=== PATIENT | female | born 1960 | race Caucasian/White ===

== ENCOUNTER 2019-09-01 22:52 | Emergency (ER) | payer OTHER ==
[2019-09-01] MEDS ORDERED: KETOROLAC 30 MG/ML INJ ONE (23:35)
[2019-09-01] MEDS ORDERED: dexAMETHasone 10 MG/ML VIAL ONE (23:35)
--- NOTE | 2019-09-02 00:07 | EDPHYS ---
Physician Documentation [facility] Name: Benita Mackey Age: 59 yrs Sex: Female : 1960 Arrival Date: 09/01/2019 Time: 22:54 Bed 17 Private MD: ED Physician Sergei Vasques HPI: 08/31 23:12 This 59 yrs old Female presents to ER via Ambulatory with complaints of jmm Numbness Of Arm. 23:12 The patient or guardian complains of pain. Onset: The symptoms/episode began/occurred jmm gradually, 3 day(s) ago. Modifying factors: The symptoms are alleviated by nothing. the symptoms are aggravated by movement. Associated signs and symptoms: Pertinent positives: pain, tingling. This is a 59 year old female with a history of hlp, htn, that presents to the ED with complaints of right forearm pain which radiates to her hand for the past 3 days. Patient denies fever. 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 Pain begins at the elbow and radiates to the right hand, mainly affecting her 4th and 5th finger. Historical: - Allergies: 23:07 Chocolate; mg2 23:07 Codeine; mg2 23:07 Morphine; mg2 23:07 PENICILLINS; mg2 23:07 Sulfa (Sulfonamide Antibiotics); mg2 - Home Meds: 23:07 atorvastatin 10 mg Oral tab 1 tab once daily [Active]; lisinopril-hydrochlorothiazide mg2 10-12.5 mg Oral tab 1 tab once daily for Hypertension [Active]; omeprazole 40 mg Oral cpDR 1 cap once daily [Active]; venlafaxine 150 mg Oral cp24 1 cap once daily for Anxiety with Depression [Active]; - PMHx: 23:07 Anxiety; GERD; High Cholesterol; Hypertension; mg2 - PSHx: 23:07 Cholecystectomy; mg2 - Immunization history:: Flu vaccine status is unknown. - Social history:: Smoking status: Patient/guardian denies using tobacco, Patient/guardian denies using alcohol, street drugs, IV drugs. ROS: 23:12 Constitutional: Negative for fever, chills, and weight loss, Cardiovascular: Negative jmm for chest pain, palpitations, and edema, Respiratory: Negative for shortness of breath, cough, wheezing, and pleuritic chest pain. 23:12 MS/extremity: Positive for pain. 23:12 All other systems are negative. Exam: 23:12 Constitutional: This is a well developed, well nourished patient who is awake, alert, jmm and in no acute distress. Head/Face: atraumatic. Eyes: EOMI, no conjunctival erythema appreciated ENT: Moist Mucus Membranes Neck: Trachea midline, Supple Chest/axilla: Normal chest wall appearance and motion. Cardiovascular: Regular rate and rhythm. No edema appreciated Respiratory: Normal respirations, no respiratory distress appreciated Abdomen/GI: Non distended, soft Back: Normal ROM Skin: General appearance color normal 23:12 MS/ Extremity: Moves all extremities, no obvious deformities appreciated, no edema noted to the lower extremities Neuro: Awake and alert, normal gait 23:12 Musculoskeletal/extremity: positive tinnels sign at both cubital tunnel and carpel tunnel. Full hand carver strength, full rom of motion appreicated, full radial pulse, compartments are soft, NVI. Vital Signs: 23:03 BP 132 / 61; Pulse 78; Resp 18; Temp 97.6; Pulse Ox 100% on R/A; Weight 83.91 kg; mg2 Height 5 ft. 2 in. (157.48 cm); 09/01 00:22 BP 130 / 65; Pulse 80; Resp 18; Temp 98; Pulse Ox 100% on R/A; mg2 08/31 23:03 Body Mass Index 33.84 (83.91 kg, 157.48 cm) mg2 MDM: 08/31 23:12 Patient medically screened. [facility] 23:59 Data reviewed: vital signs, nurses notes. Counseling: I had a detailed discussion with [facility] the patient and/or guardian regarding: the historical points, exam findings, and any diagnostic results supporting the discharge/admit diagnosis, the need for outpatient follow up, to return to the emergency department if symptoms worsen or persist or if there are any questions or concerns that arise at home. ED course: PE findings consistent with ulnar neuropathy. Patient advised to follow up with ortho for further evaluation. . 08/31 23:21 Order name: Wrist Splint; Complete Time: 23:38 mg2 Administered Medications: 23:38 Drug: TORadol 30 mg Route: IM; Site: right gluteus; mg2 09/01 00:23 Follow up: Response: No adverse reaction mg2 08/31 23:38 Drug: Decadron 10 mg Route: IM; Site: left gluteus; mg2 09/01 00:23 Follow up: Response: No adverse reaction mg2 Disposition: 07:40 Co-signature as Attending Physician, Sergei Vasques MD I agree with the assessment and [facility] plan of care. Disposition: 09/02/19 00:06 Discharged to Home. Impression: Pain in right forearm. - Condition is Stable. - Discharge Instructions: Carpal Tunnel Syndrome, Neuropathic Pain. - Prescriptions for orphenadrine citrate 100 mg Oral Tablet Sustained Release - take 1 tablet by ORAL route 2 times per day As needed; 20 tablet. - Medication Reconciliation Form, Thank You Letter, Antibiotic Education, Prescription Opioid Use form. - Follow up: Antonio Palmer MD; When: 2 - 3 days; Reason: Recheck today's complaints, Continuance of care, Re-evaluation by your physician. Signatures: Sergei Vasques MD MD cha Mickail, Joel, PA PA [facility] Blaine Victor RN RN mg2 Corrections: (The following items were deleted from the chart) 00:23 00:06 09/02/2019 00:06 Discharged to Home. Impression: Pain in right forearm. Condition mg2 is Stable. Forms are Medication Reconciliation Form, Thank You Letter, Antibiotic Education, Prescription Opioid Use. Follow up: Dr. Antonio Palmer; When: 2 - 3 days; Reason: Recheck today's complaints, Continuance of care, Re-evaluation by your physician. luisa
--- NOTE | 2019-09-02 00:07 | ER ---
Nurse's Notes [facility] Name: Benita Mackey Age: 59 yrs Sex: Female : 1960 Arrival Date: 09/01/2019 Time: 22:54 Bed 17 Private MD: Diagnosis: Pain in right forearm Presentation: 08/31 23:03 Chief complaint: Patient states: i have right arm pain with numbness and tingling in my mg2 fingers for few days now. i think its pinch nerve. Coronavirus screen: The patient has NOT traveled to a country currently being monitored by the [facility] within the last 14 days. Proceed with normal triage procedures. The patient has NOT had contact with any known and/or suspected case of coronavirus. Proceed with normal triage procedures. Ebola Screen: No symptoms or risks identified at this time. Initial Sepsis Screen: Does the patient meet any 2 criteria? No. Patient's initial sepsis screen is negative. Does the patient have a suspected source of infection? No. Patient's initial sepsis screen is negative. Risk Assessment: Do you want to hurt yourself or someone else? Patient reports no desire to harm self or others. 23:03 Method Of Arrival: Ambulatory mg2 23:03 Acuity: MARIAN 3 mg2 23:09 Onset of symptoms was August 2019. mg2 Historical: - Allergies: 23:07 Chocolate; mg2 23:07 Codeine; mg2 23:07 Morphine; mg2 23:07 PENICILLINS; mg2 23:07 Sulfa (Sulfonamide Antibiotics); mg2 - Home Meds: 23:07 atorvastatin 10 mg Oral tab 1 tab once daily [Active]; lisinopril-hydrochlorothiazide mg2 10-12.5 mg Oral tab 1 tab once daily for Hypertension [Active]; omeprazole 40 mg Oral cpDR 1 cap once daily [Active]; venlafaxine 150 mg Oral cp24 1 cap once daily for Anxiety with Depression [Active]; - PMHx: 23:07 Anxiety; GERD; High Cholesterol; Hypertension; mg2 - PSHx: 23:07 Cholecystectomy; mg2 - Immunization history:: Flu vaccine status is unknown. - Social history:: Smoking status: Patient/guardian denies using tobacco, Patient/guardian denies using alcohol, street drugs, IV drugs. Screenin:07 Abuse screen: Denies threats or abuse. Denies injuries from another. Nutritional mg2 screening: No deficits noted. Tuberculosis screening: No symptoms or risk factors identified. Fall Risk None identified. Assessment: 23:07 General: Appears in no apparent distress. comfortable, Behavior is calm, cooperative. mg2 Pain: Complains of pain in right arm Pain radiates to right hand Quality of pain is described as aching, Pain began gradually, 2-3 days ago. Is intermittent. Neuro: Level of Consciousness is awake, alert, obeys commands, Oriented to person, place, time, situation. Cardiovascular: Capillary refill < 3 seconds Patient's skin is warm and dry. Respiratory: Airway is patent Respiratory effort is even, unlabored, Respiratory pattern is regular, symmetrical. GI: No signs and/or symptoms were reported involving the gastrointestinal system. : No signs and/or symptoms were reported regarding the genitourinary system. EENT: No signs and/or symptoms were reported regarding the EENT system. Derm: Skin is intact, is healthy with good turgor, Skin is pink, warm \T\ dry. normal. Musculoskeletal: Circulation, motion, and sensation intact. Capillary refill < 3 seconds, Reports numbness in right arm pain in right arm. Vital Signs: 23:03 BP 132 / 61; Pulse 78; Resp 18; Temp 97.6; Pulse Ox 100% on R/A; Weight 83.91 kg; mg2 Height 5 ft. 2 in. (157.48 cm); 09/01 00:22 BP 130 / 65; Pulse 80; Resp 18; Temp 98; Pulse Ox 100% on R/A; mg2 08/31 23:03 Body Mass Index 33.84 (83.91 kg, 157.48 cm) mg2 ED Course: 08/31 22:54 Patient arrived in ED. cl3 23:02 Blaine Victor, DIONNA is Primary Nurse. mg2 23:05 Triage completed. mg2 23:07 Arm band placed on. mg2 23:10 Patient has correct armband on for positive identification. mg2 23:12 Fidle Corona PA is PHCP. [facility] 23:12 Sergei Vasques MD is Attending Physician. [facility] 09/01 00:05 Antonio Palmer MD is Referral Physician. [facility] 00:22 No provider procedures requiring assistance completed. Patient did not have IV access mg2 during this emergency room visit. Velcro wrist splint applied to right wrist. Administered Medications: 08/31 23:38 Drug: TORadol 30 mg Route: IM; Site: right gluteus; mg2 09/01 00:23 Follow up: Response: No adverse reaction mg2 08/31 23:38 Drug: Decadron 10 mg Route: IM; Site: left gluteus; mg2 09/01 00:23 Follow up: Response: No adverse reaction mg2 Outcome: 00:06 Discharge ordered by MD. moran 00:23 Discharged to home ambulatory. mg2 00:23 Condition: stable 00:23 Discharge instructions given to patient, Instructed on discharge instructions, follow up and referral plans. medication usage, Demonstrated understanding of instructions, follow-up care, medications, Prescriptions given X 00:23 Patient left the ED. mg2 Signatures: Fidel Corona PA PA jmm Gardose, Michele, DIONNA RN mg2 Balaji Daily cl3 Corrections: (The following items were deleted from the chart) 08/31 23:10 23:09 Allergy band placed. mg2 mg2
[2019-09-02 00:33] VITALS: O2SAT 100
[2019-09-02 00:34] VITALS: BP 130/65; TEMP 98
== END 2019-09-02 00:23 | disposition home or self-care (01) ==
LOC: ER 22:52
DX: M79.631 Pain in right forearm (principal); Z88.6 Allergy status to analgesic agent; Z88.0 Allergy status to penicillin; Z88.2 Allergy status to sulfonamides; Z91.018 Allergy to other foods
CPT/HCPCS: 96372; 99283; J1100

== ENCOUNTER 2019-09-04 20:19 | Emergency (ER) | payer OTHER ==
[2019-09-04] MEDS ORDERED: KETOROLAC 30 MG/ML INJ ONE (20:44)
[2019-09-04] MEDS ORDERED: dexAMETHasone 10 MG/ML VIAL ONE (20:44)
--- NOTE | 2019-09-04 21:02 | ER ---
Nurse's Notes [facility] Name: Benita Mackey Age: 59 yrs Sex: Female : 1960 Arrival Date: 09/04/2019 Time: 20:22 Bed 19 Private MD: Damian Quinteros Diagnosis: Carpal tunnel syndrome, left upper limb Presentation: 09/03 20:35 Chief complaint: Patient states: my left arm and hand hurts a lot started today morning rr5 I took ibuprofen, aleve, and pain medication but it does not relieved the pain. 20:35 Coronavirus screen: Patient denies fever greater than 100.4F, cough, shortness of rr5 breath, or difficulty breathing. Proceed with normal triage process. Ebola Screen: Patient negative for fever greater than or equal to 101.5 degrees Fahrenheit, and additional compatible Ebola Virus Disease symptoms Patient denies exposure to infectious person. Patient denies travel to an Ebola-affected area in the 21 days before illness onset. Initial Sepsis Screen: Does the patient meet any 2 criteria? No. Patient's initial sepsis screen is negative. Does the patient have a suspected source of infection? No. Patient's initial sepsis screen is negative. Risk Assessment: Do you want to hurt yourself or someone else? Patient reports no desire to harm self or others. Onset of symptoms was September 04, 2019. 20:35 Method Of Arrival: Ambulatory rr5 20:35 Acuity: MARIAN 4 rr5 Historical: - Allergies: 20:41 Chocolate; rr5 20:41 Codeine; rr5 20:41 Morphine; rr5 20:41 PENICILLINS; rr5 20:41 Sulfa (Sulfonamide Antibiotics); rr5 - Home Meds: 20:41 atorvastatin 10 mg Oral tab 1 tab once daily [Active]; lisinopril-hydrochlorothiazide rr5 10-12.5 mg Oral tab 1 tab once daily for Hypertension [Active]; omeprazole 40 mg Oral cpDR 1 cap once daily [Active]; venlafaxine 150 mg Oral cp24 1 cap once daily for Anxiety with Depression [Active]; - PMHx: 20:41 Anxiety; GERD; High Cholesterol; Hypertension; rr5 - PSHx: 20:41 Cholecystectomy; ; Tonsillectomy; nose surgery related to cancer; rr5 - Immunization history:: Adult Immunizations up to date. - Social history:: Smoking status: unknown Patient/guardian denies using alcohol, street drugs, tobacco products. Screenin:02 Abuse screen: Denies threats or abuse. Denies injuries from another. Nutritional rr5 screening: No deficits noted. Tuberculosis screening: No symptoms or risk factors identified. Fall Risk None identified. Total Palmer Fall Scale indicates No Risk (0-24 pts). Assessment: 20:35 General: Appears in no apparent distress. comfortable, Behavior is calm, cooperative, rr5 appropriate for age. 20:35 Pain: Complains of pain in left wrist and left elbow Pain radiates to left arm Pain rr5 currently is 8 out of 10 on a pain scale. Quality of pain is described as aching, Pain began gradually, Is intermittent. Neuro: Level of Consciousness is awake, alert, obeys commands, Oriented to person, place, time, situation, Appropriate for age. Cardiovascular: Capillary refill < 3 seconds Patient's skin is warm and dry. Respiratory: Airway is patent Respiratory effort is even, unlabored, Respiratory pattern is regular, symmetrical. GI: No signs and/or symptoms were reported involving the gastrointestinal system. : No signs and/or symptoms were reported regarding the genitourinary system. EENT: No signs and/or symptoms were reported regarding the EENT system. Derm: Skin is intact, is healthy with good turgor, Skin is pink, warm \T\ dry. Musculoskeletal: Capillary refill < 3 seconds, Reports pain in left elbow and left wrist Pain is 8 out of 10 on a pain scale. Vital Signs: 20:35 BP 146 / 71; Pulse 70; Resp 19; Temp 97.9; Pulse Ox 98% ; Weight 83.91 kg; Height 5 ft. rr5 2 in. (157.48 cm); Pain 8/10; 20:35 Body Mass Index 33.84 (83.91 kg, 157.48 cm) rr5 ED Course: 20:22 Patient arrived in ED. es 20:23 Damian Quinteros MD is Private Physician. es 20:25 Laila Watkins is Primary Nurse. wh 20:25 Kevin Portillo NP is PHCP. pm1 20:25 Sergei Vasques MD is Attending Physician. pm1 20:35 Patient has correct armband on for positive identification. Bed in low position. Call rr5 light in reach. Pulse ox on. NIBP on. 20:39 Triage completed. rr5 20:42 Arm band placed on right wrist. rr5 20:50 Velcro wrist splint applied to left wrist. 21:13 No provider procedures requiring assistance completed. Patient did not have IV access during this emergency room visit. Administered Medications: 20:46 Drug: TORadol 30 mg Route: IM; Site: right deltoid; 21:15 Follow up: Response: No adverse reaction; Pain is decreased 20:46 Drug: Decadron 10 mg Route: IM; Site: left deltoid; 21:15 Follow up: Response: No adverse reaction Outcome: 21:02 Discharge ordered by MD. pm1 21:14 Discharged to home ambulatory. 21:14 Condition: stable 21:14 Discharge instructions given to patient, Instructed on discharge instructions, follow up and referral plans. medication usage, POC Demonstrated understanding of instructions, follow-up care, medications, splint care, Prescriptions given X 2. 21:14 Patient left the ED. Signatures: Elvia Trammell Patrick, PRODUCT MARKETING ENGINEER PRODUCT MARKETING ENGINEER pm1 Laila Watkins Cristobal Mathis, RN RN rr5
--- NOTE | 2019-09-04 21:03 | EDPHYS ---
Physician Documentation [facility] Name: Benita Mackey Age: 59 yrs Sex: Female : 1960 Arrival Date: 09/04/2019 Time: 20:22 Bed 19 Private MD: Damian Quinteros ED Physician Sergei Vasques HPI: 09/03 20:33 This 59 yrs old Female presents to ER via Ambulatory with complaints of Pain pm1 and numbness of left arm and hand. 20:33 The patient or guardian reports pain. The complaints affect the left wrist diffusely. pm1 Context: resulted from possibly work. Lots of typing. Onset: The symptoms/episode began/occurred today. Modifying factors: The symptoms are alleviated by nothing, the symptoms are aggravated by movement. Associated signs and symptoms: Pertinent positives: numbness distally, tingling distally, Pertinent negatives: cyanosis distally, decreased sensation distally. The patient has experienced a previous episode, and the symptoms today are exactly the same, to right wrist 3 days ago that resolved with treatment in the ER. Historical: - Allergies: 20:41 Chocolate; rr5 20:41 Codeine; rr5 20:41 Morphine; rr5 20:41 PENICILLINS; rr5 20:41 Sulfa (Sulfonamide Antibiotics); rr5 - Home Meds: 20:41 atorvastatin 10 mg Oral tab 1 tab once daily [Active]; lisinopril-hydrochlorothiazide rr5 10-12.5 mg Oral tab 1 tab once daily for Hypertension [Active]; omeprazole 40 mg Oral cpDR 1 cap once daily [Active]; venlafaxine 150 mg Oral cp24 1 cap once daily for Anxiety with Depression [Active]; - PMHx: 20:41 Anxiety; GERD; High Cholesterol; Hypertension; rr5 - PSHx: 20:41 Cholecystectomy; ; Tonsillectomy; nose surgery related to cancer; rr5 - Immunization history:: Adult Immunizations up to date. - Social history:: Smoking status: unknown Patient/guardian denies using alcohol, street drugs, tobacco products. ROS: 20:33 Constitutional: Negative for fever, chills, and weight loss, Cardiovascular: Negative pm1 for chest pain, palpitations, and edema, Respiratory: Negative for shortness of breath, cough, wheezing, and pleuritic chest pain, Abdomen/GI: Negative for abdominal pain, nausea, vomiting, diarrhea, and constipation, Back: Negative for injury and pain. 20:33 Skin: Negative for injury, rash, and discoloration, Neuro: Negative for headache, weakness, and seizure. 20:33 MS/extremity: Positive for pain, of the left wrist, numbness and tingling to left hand, Negative for decreased range of motion, deformity. Exam: 20:33 Hand exam: is negative for decreased range of motion, deformity, Exam is positive for pm1 Phalens Tinnels left wrist. 20:33 Constitutional: This is a well developed, well nourished patient who is awake, alert, and in no acute distress. Head/Face: Normocephalic, atraumatic. Neck: Trachea midline, no thyromegaly or masses palpated, and no cervical lymphadenopathy. Supple, full range of motion without nuchal rigidity, or vertebral point tenderness. No Meningismus. Chest/axilla: Normal chest wall appearance and motion. Nontender with no deformity. No lesions are appreciated. Cardiovascular: Regular rate and rhythm with a normal S1 and S2. No gallops, murmurs, or rubs. Normal PMI, no JVD. No pulse deficits. Respiratory: Lungs have equal breath sounds bilaterally, clear to auscultation and percussion. No rales, rhonchi or wheezes noted. No increased work of breathing, no retractions or nasal flaring. Skin: Warm, dry with normal turgor. Normal color with no rashes, no lesions, and no evidence of cellulitis. Vital Signs: 20:35 BP 146 / 71; Pulse 70; Resp 19; Temp 97.9; Pulse Ox 98% ; Weight 83.91 kg; Height 5 ft. rr5 2 in. (157.48 cm); Pain 8/10; 20:35 Body Mass Index 33.84 (83.91 kg, 157.48 cm) rr5 MDM: 20:25 Patient medically screened. pm1 21:01 Data reviewed: vital signs. Data interpreted: Pulse oximetry: on room air is 98 %. pm1 Interpretation: normal. Counseling: I had a detailed discussion with the patient and/or guardian regarding: the historical points, exam findings, and any diagnostic results supporting the discharge/admit diagnosis, the need for outpatient follow up, for definitive care, a hand specialist, to return to the emergency department if symptoms worsen or persist or if there are any questions or concerns that arise at home. 09/03 20:33 Order name: Wrist Splint; Complete Time: 20:59 pm1 Administered Medications: 20:46 Drug: TORadol 30 mg Route: IM; Site: right deltoid; 21:15 Follow up: Response: No adverse reaction; Pain is decreased 20:46 Drug: Decadron 10 mg Route: IM; Site: left deltoid; 21:15 Follow up: Response: No adverse reaction Disposition: 09/04 18:06 Co-signature as Attending Physician, Sergei Vasques MD I agree with the assessment and karen plan of care. Disposition: 09/04/19 21:02 Discharged to Home. Impression: Carpal tunnel syndrome, left upper limb. - Condition is Stable. - Discharge Instructions: Carpal Tunnel Syndrome, Wrist Splint. - Prescriptions for Medrol (Juan) 4 mg Oral Tablets, Dose Pack - take 1 tablet by ORAL route as directed - follow package instructions; 1 packet. Diclofenac Sodium 75 mg Oral Tablet, Delayed Release (E.C.) - take 1 tablet by ORAL route 2 times per day As needed; 30 tablet. - Medication Reconciliation Form, Thank You Letter, Antibiotic Education, Prescription Opioid Use form. - Follow up: Emergency Department; When: As needed; Reason: Worsening of condition. Follow up: Private Physician; When: 2 - 3 days; Reason: Recheck today's complaints, Continuance of care, Re-evaluation by your physician. - Problem is new. - Symptoms have improved. Signatures: Sergei Vasques MD MD cha Marinas, Patrick REINFORCING STEEL WORKER REINFORCING STEEL WORKER pm1 Laila Watkins Cristobal Mathis, RN RN rr5 Corrections: (The following items were deleted from the chart) 09/03 21:14 21:02 09/04/2019 21:02 Discharged to Home. Impression: Carpal tunnel syndrome, left wh upper limb. Condition is Stable. Discharge Instructions: Carpal Tunnel Syndrome, Wrist Splint. Prescriptions for Medrol (Juan) 4 mg Oral Tablets, Dose Pack - take 1 tablet by ORAL route as directed - follow package instructions; 1 packet. and Forms are Medication Reconciliation Form, Thank You Letter, Antibiotic Education, Prescription Opioid Use. Follow up: Emergency Department; When: As needed; Reason: Worsening of condition. Follow up: Private Physician; When: 2 - 3 days; Reason: Recheck today's complaints, Continuance of care, Re-evaluation by your physician. Problem is new. Symptoms have improved. pm1
[2019-09-04 21:21] VITALS: BP 146/71; TEMP 97.9; O2SAT 98
== END 2019-09-04 21:14 | disposition home or self-care (01) ==
LOC: ER 20:19
DX: G56.02 Carpal tunnel syndrome, left upper limb (principal); Z88.0 Allergy status to penicillin; Z88.6 Allergy status to analgesic agent; Z91.018 Allergy to other foods; I10 Essential (primary) hypertension; F41.9 Anxiety disorder, unspecified
CPT/HCPCS: 96372; 99284; J1100

== ENCOUNTER 2019-09-12 12:11 | Observation (INO) | payer OTHER ==
--- NOTE | 2019-09-12 12:51 | ER ---
Nurse's Notes [facility] Name: Benita Mackey Age: 59 yrs Sex: Female : 1960 Arrival Date: 09/12/2019 Time: 12:12 Bed 8 Private MD: Diagnosis: Chest pain, unspecified;Tobacco use;Angina pectoris Presentation: 09/11 12:13 Chief complaint: EMS states: Laying in bed approximately 20-30 minutes ago when patient ss began experiencing chest pressure that radiated to jaw and shortness of breath. Pt reports her symptoms have resolved completely and is feeling much better. Coronavirus screen: Patient denies fever greater than 100.4F, cough, shortness of breath, or difficulty breathing. Proceed with normal triage process. Ebola Screen: Patient denies exposure to infectious person. Patient denies travel to an Ebola-affected area in the 21 days before illness onset. Initial Sepsis Screen: Does the patient meet any 2 criteria? No. Patient's initial sepsis screen is negative. Does the patient have a suspected source of infection? No. Patient's initial sepsis screen is negative. Risk Assessment: Do you want to hurt yourself or someone else? Patient reports no desire to harm self or others. 12:13 Method Of Arrival: EMS: [facility] ss 12:13 Acuity: MARIAN 3 ss Triage Assessment: 12:15 General: Appears in no apparent distress. comfortable, obese, Behavior is calm, ss cooperative, appropriate for age. General: S/S RESOLVED ELIGIBILITY EXAMINER, PER PT. Pain: Denies pain. EENT: No deficits noted. Neuro: No deficits noted. Cardiovascular: Rhythm is sinus rhythm. Respiratory: No deficits noted. GI: No signs and/or symptoms were reported involving the gastrointestinal system. : No signs and/or symptoms were reported regarding the genitourinary system. Derm: No deficits noted. Musculoskeletal: No deficits noted. Historical: - Allergies: 12:16 Chocolate; ss 12:16 Codeine; ss 12:16 Morphine; ss 12:16 PENICILLINS; ss 12:16 Sulfa (Sulfonamide Antibiotics); ss - Home Meds: 12:16 atorvastatin 10 mg Oral tab 1 tab once daily [Active]; lisinopril-hydrochlorothiazide ss 10-12.5 mg Oral tab 1 tab once daily for Hypertension [Active]; omeprazole 40 mg Oral cpDR 1 cap once daily [Active]; venlafaxine 150 mg Oral cp24 1 cap once daily for Anxiety with Depression [Active]; - PMHx: 12:16 Anxiety; GERD; High Cholesterol; Hypertension; ss - PSHx: 12:16 Cholecystectomy; ; Tonsillectomy; nose surgery related to cancer; ss - Immunization history:: Adult Immunizations up to date. - Family history:: not pertinent. Screenin:15 Abuse screen: Denies threats or abuse. Denies injuries from another. Nutritional ss screening: No deficits noted. Tuberculosis screening: No symptoms or risk factors identified. Fall Risk None identified. Assessment: 12:15 General: SEE TRIAGE NOTE. 13:24 Reassessment: ADMIT MD AT B/S. 15:54 Reassessment: PT REFUSING ADMIT, INSISTS ON LEAVING AMA. PT COUNSELED TO REMAIN BY MD bp AND STAFF, BUT DECLINED. PT URGED TO RETURN IF S/S RETURN OR WORSEN. Vital Signs: 12:16 BP 112 / 61; Pulse 70; Resp 17; Temp 97.9(O); Pulse Ox 96% on R/A; Weight 83.91 kg; Height 5 ft. 2 in. (157.48 cm); Pain 0/10; 13:23 BP 116 / 77; Pulse 70; Resp 15; Pulse Ox 99% ; ss 15:57 BP 113 / 72; Pulse 65; Resp 16; Temp 98; Pulse Ox 99% ; bp 12:16 Body Mass Index 33.84 (83.91 kg, 157.48 cm) ED Course: 12:12 Patient arrived in ED. 12:13 Sergei Vasques MD is Attending Physician. [facility] 12:14 Triage completed. 12:15 Patient has correct armband on for positive identification. Bed in low position. Call ss light in reach. Side rails up X2. waste management specialist on. Pulse ox on. NIBP on. 12:16 Arm band placed on right wrist. 12:20 EKG done, by ED staff, reviewed by Sergei Vasques MD. [facility] 12:26 Rani Woody, DIONNA is Primary Nurse. 12:41 Initial lab(s) drawn, by al, sent to lab. Inserted saline lock: 20 gauge in right dh3 forearm, using aseptic technique. Blood collected. 12:49 Lalita Case MD is Hospitalizing Provider. [facility] 13:25 Primary Nurse role handed off by Rani Woody, DIONNA bp 13:25 Damian Cr, RN is Primary Nurse. bp 14:05 XRAY Chest (1 view) In Process Unspecified. EDMS 15:54 No provider procedures requiring assistance completed. IV discontinued, intact, bp bleeding controlled, No redness/swelling at site. Pressure dressing applied. Patient maintains SpO2 saturation greater than 95% on room air. Administered Medications: 13:00 Drug: Aspirin Chewable Tablet 324 mg Route: PO; ss 15:56 Follow up: Response: No adverse reaction bp 13:00 Drug: Lopressor 25 mg Route: PO; ss 15:56 Follow up: Response: No adverse reaction bp 13:00 Drug: Lovenox 1 mg/kg Route: Sub-Q; Site: right lower abdomen; ss 15:55 Follow up: Response: No adverse reaction bp 13:00 Drug: Pepcid 20 mg Route: IVP; Site: right forearm; ss 15:55 Follow up: Response: No adverse reaction bp Outcome: 12:50 Decision to Hospitalize by Provider. [facility] 15:55 AMA AMA form signed bp 15:55 Condition: stable 15:58 Patient left the ED. bp Signatures: Dispatcher [employer] Sergei Phelps MD MD cha Smirch, Shelby, RN RN [facility] Damian Cr, RN RN bp
--- NOTE | 2019-09-12 12:51 | EDPHYS ---
Physician Documentation [facility] Name: Benita Mackey Age: 59 yrs Sex: Female : 1960 Arrival Date: 09/12/2019 Time: 12:12 Bed 8 Private MD: ED Physician Sergei Vasques HPI: 09/11 12:45 This 59 yrs old Female presents to ER via EMS with complaints of Chest Pain, karen Shortness Of Breath. 12:45 The patient or guardian reports chest pain that is located primarily in the substernal karen area. Onset: just prior to arrival. The pain radiates to Associated signs and symptoms: Pertinent positives: diaphoresis, dizziness, shortness of breath. The chest pain is described as a heaviness. Modifying factors: The symptoms are alleviated by nothing. the symptoms are aggravated by nothing. Severity of pain: At its worst the pain was mild moderate in the emergency department the pain is unchanged. The patient has not experienced similar symptoms in the past. Historical: - Allergies: 12:16 Chocolate; ss 12:16 Codeine; ss 12:16 Morphine; ss 12:16 PENICILLINS; ss 12:16 Sulfa (Sulfonamide Antibiotics); ss - Home Meds: 12:16 atorvastatin 10 mg Oral tab 1 tab once daily [Active]; lisinopril-hydrochlorothiazide ss 10-12.5 mg Oral tab 1 tab once daily for Hypertension [Active]; omeprazole 40 mg Oral cpDR 1 cap once daily [Active]; venlafaxine 150 mg Oral cp24 1 cap once daily for Anxiety with Depression [Active]; - PMHx: 12:16 Anxiety; GERD; High Cholesterol; Hypertension; ss - PSHx: 12:16 Cholecystectomy; ; Tonsillectomy; nose surgery related to cancer; ss - Immunization history:: Adult Immunizations up to date. - Family history:: not pertinent. ROS: 12:45 Constitutional: Negative for fever, chills, and weight loss, Eyes: Negative for injury, karen pain, redness, and discharge, ENT: Negative for injury, pain, and discharge, Neck: Negative for injury, pain, and swelling, Respiratory: Negative for shortness of breath, cough, wheezing, and pleuritic chest pain, Abdomen/GI: Negative for abdominal pain, nausea, vomiting, diarrhea, and constipation, Back: Negative for injury and pain, : Negative for injury, bleeding, discharge, and swelling, MS/Extremity: Negative for injury and deformity, Skin: Negative for injury, rash, and discoloration, Neuro: Negative for headache, weakness, numbness, tingling, and seizure, Psych: Negative for depression, anxiety, suicide ideation, homicidal ideation, and hallucinations, Allergy/Immunology: Negative for hives, rash, and allergies, Endocrine: Negative for neck swelling, polydipsia, polyuria, polyphagia, and marked weight changes, Hematologic/Lymphatic: Negative for swollen nodes, abnormal bleeding, and unusual bruising. 12:45 Cardiovascular: Positive for chest pain, of the chest. Exam: 12:45 Constitutional: This is a well developed, well nourished patient who is awake, alert, karen and in no acute distress. Head/Face: Normocephalic, atraumatic. Eyes: Pupils equal round and reactive to light, extra-ocular motions intact. Lids and lashes normal. Conjunctiva and sclera are non-icteric and not injected. Cornea within normal limits. Periorbital areas with no swelling, redness, or edema. ENT: Nares patent. No nasal discharge, no septal abnormalities noted. Tympanic membranes are normal and external auditory canals are clear. Oropharynx with no redness, swelling, or masses, exudates, or evidence of obstruction, uvula midline. Mucous membranes moist. Neck: Trachea midline, no thyromegaly or masses palpated, and no cervical lymphadenopathy. Supple, full range of motion without nuchal rigidity, or vertebral point tenderness. No Meningismus. Chest/axilla: Normal chest wall appearance and motion. Nontender with no deformity. No lesions are appreciated. Cardiovascular: Regular rate and rhythm with a normal S1 and S2. No gallops, murmurs, or rubs. Normal PMI, no JVD. No pulse deficits. Respiratory: Lungs have equal breath sounds bilaterally, clear to auscultation and percussion. No rales, rhonchi or wheezes noted. No increased work of breathing, no retractions or nasal flaring. Abdomen/GI: Soft, non-tender, with normal bowel sounds. No distension or tympany. No guarding or rebound. No evidence of tenderness throughout. Back: No spinal tenderness. No costovertebral tenderness. Full range of motion. Skin: Warm, dry with normal turgor. Normal color with no rashes, no lesions, and no evidence of cellulitis. MS/ Extremity: Pulses equal, no cyanosis. Neurovascular intact. Full, normal range of motion. Neuro: Awake and alert, GCS 15, oriented to person, place, time, and situation. Cranial nerves II-XII grossly intact. Motor strength 5/5 in all extremities. Sensory grossly intact. Cerebellar exam normal. Normal gait. Psych: Awake, alert, with orientation to person, place and time. Behavior, mood, and affect are within normal limits. Vital Signs: 12:16 BP 112 / 61; Pulse 70; Resp 17; Temp 97.9(O); Pulse Ox 96% on R/A; Weight 83.91 kg; ss Height 5 ft. 2 in. (157.48 cm); Pain 0/10; 13:23 BP 116 / 77; Pulse 70; Resp 15; Pulse Ox 99% ; ss 15:57 BP 113 / 72; Pulse 65; Resp 16; Temp 98; Pulse Ox 99% ; bp 12:16 Body Mass Index 33.84 (83.91 kg, 157.48 cm) MDM: 12:13 Patient medically screened. [facility] 09/11 12:45 Order name: Basic Metabolic Panel; Complete Time: 13:48 [facility] 09/11 12:45 Order name: CBC with Diff; Complete Time: 13:48 09/11 12:45 Order name: LFT's; Complete Time: 13:48 [facility] 09/11 12:45 Order name: Magnesium; Complete Time: 13:48 [facility] 09/11 12:45 Order name: NT PRO-BNP; Complete Time: 13:48 09/11 12:45 Order name: PT-INR; Complete Time: 13:48 [facility] 09/11 12:45 Order name: Troponin (emerg Dept Use Only); Complete Time: 13:48 [facility] 09/11 12:44 Order name: EKG; Complete Time: 12:44 09/11 12:44 Order name: Cardiac monitoring; Complete Time: 12:51 09/11 12:44 Order name: EKG - Nurse/Tech; Complete Time: 12:48 09/11 12:44 Order name: IV Saline Lock; Complete Time: 12:47 09/11 12:44 Order name: Labs collected and sent; Complete Time: 12:48 09/11 12:45 Order name: XRAY Chest (1 view) [facility] 09/11 12:45 Order name: EKG; Complete Time: 12:46 [facility] 09/11 12:45 Order name: Lipase; Complete Time: 13:48 [facility] 09/11 14:07 Order name: CONS Physician Consult [facility] 09/11 14:07 Order name: Heart Healthy [facility] 09/11 14:07 Order name: Echo with Doppler [facility] 09/11 12:44 Order name: O2 Per Protocol; Complete Time: 12:48 09/11 12:44 Order name: O2 Sat Monitoring; Complete Time: 12:48 09/11 12:45 Order name: Cardiac monitoring; Complete Time: 13:00 [facility] 09/11 12:45 Order name: EKG - Nurse/Tech; Complete Time: 13:00 [facility] 09/11 12:45 Order name: IV Saline Lock; Complete Time: 13:00 [facility] 09/11 12:45 Order name: Labs collected and sent; Complete Time: 13:00 [facility] 09/11 12:45 Order name: O2 Per Protocol; Complete Time: 13:00 [facility] 09/11 12:45 Order name: O2 Sat Monitoring; Complete Time: 13:00 [facility] Administered Medications: 13:00 Drug: Aspirin Chewable Tablet 324 mg Route: PO; ss 15:56 Follow up: Response: No adverse reaction bp 13:00 Drug: Lopressor 25 mg Route: PO; ss 15:56 Follow up: Response: No adverse reaction bp 13:00 Drug: Lovenox 1 mg/kg Route: Sub-Q; Site: right lower abdomen; ss 15:55 Follow up: Response: No adverse reaction bp 13:00 Drug: Pepcid 20 mg Route: IVP; Site: right forearm; ss 15:55 Follow up: Response: No adverse reaction bp Disposition: 09/12/19 12:50 Hospitalization ordered by Lalita Case for Observation. Preliminary diagnosis are Chest pain, unspecified, Tobacco use, Angina pectoris. - Bed requested for Telemetry/MedSurg (observation). - Status is Observation. bp - Condition is Fair. - Problem is new. - Symptoms have improved. Signatures: Dispatcher [employer] [facility] Gabrielle Price RN RN dw Anderson, Corey, MD MD cha Smirch, Shelby, RN RN ss Damian Cr, RN RN bp Corrections: (The following items were deleted from the chart) 12:52 12:44 Chest Single View+RAD.RAD.BRZ ordered. EDMS EDMS 13:32 12:44 BASIC METABOLIC PANEL+C.LAB.BRZ ordered. EDMS EDMS 13:32 12:44 CBC+H.LAB.BRZ ordered. EDMS EDMS 13:32 12:44 HEPATIC FUNCTION+C.LAB.BRZ ordered. EDMS EDMS 13:32 12:44 MAGNESIUM+C.LAB.BRZ ordered. EDMS EDMS 13:32 12:44 PROBNP+C.LAB.BRZ ordered. EDMS EDMS 13:32 12:44 PROTIME (+INR)+COAG.LAB.BRZ ordered. EDMS EDMS 13:32 12:44 TROPONIN (EMERG DEPT USE ONLY)+C.LAB.BRZ ordered. EDMS EDMS 15:12 12:50 Hospitalization Ordered by Lalita Case MD for Observation. Preliminary dw diagnosis is Chest pain, unspecified; Tobacco use; Angina pectoris. Bed requested for Telemetry/MedSurg (observation). Status is Observation. Condition is Fair. Problem is new. Symptoms have improved. karen 15:58 15:12 09/12/2019 12:50 Hospitalization Ordered by Lalita Case MD for Observation. bp Preliminary diagnosis is Chest pain, unspecified; Tobacco use; Angina pectoris. Bed requested for Telemetry/MedSurg (observation). Status is Observation. Condition is Fair. Problem is new. Symptoms have improved. dw
[2019-09-12 13:01] LABS: Absolute Lymphocytes (CBC) 2.5 K/uL (0.7-4.9); Basophils % 0.9 % (0-1.3); Hematocrit 41.2 % (36.0-45.0); Lymphocytes % 19.8 % (15.3-44.8); MPV 7.9 fL (7.6-11.3); RBC Red Blood Cell Count 5.18 M/uL (3.86-4.86)
[2019-09-12] MEDS ORDERED: FAMOTIDINE 20 MG/2 ML VIAL IV ONE (13:18)
[2019-09-12] MEDS ORDERED: ASPIRIN 81 MG CHEWABLE TABLET ONE (13:18)
[2019-09-12] MEDS ORDERED: METOPROLOL TAR 25 MG TAB ONE (13:18)
[2019-09-12] MEDS ORDERED: ENOXAPARIN 100 MG/ML SYR SQ ONE (13:18)
[2019-09-12 13:21] LABS: Protime INR 1.03
[2019-09-12 13:35] LABS: ALT/SGPT 28 U/L (12-78); AST/SGOT 9 U/L (15-37); Albumin 3.5 g/dL (3.4-5.0); Alkaline Phosphatase 45 U/L (45-117); BUN Blood Urea Nitrogen 19 mg/dL (7-18); Bicarbonate 25 mmol/L (21-32); Bilirubin Direct < 0.1 mg/dL (0-0.2); Bilirubin Total 0.2 mg/dL (0.2-1.0); Glucose Level 120 mg/dL (74-106); Lipase 126 U/L (73-393); Magnesium 1.9 mg/dL (1.8-2.4); NT PRO-BNP 36 pg/mL (<125); Potassium 4.1 mmol/L (3.5-5.1); Protein, Total 6.6 g/dL (6.4-8.2); Sodium Level 132 mmol/L (136-145); Troponin (Emerg Dept Use Only) < 0.02 ng/mL (0.0-0.045)
--- NOTE | 2019-09-12 14:04 | P.HP ---
Certification for Inpatient Patient admitted to: Observation Practitioner: I am a practitioner with admitting privileges, knowledge of patient current condition, hospital course, and medical plan of care. Services: Services provided to patient in accordance with Admission requirements found in Title 42 Section 412.3 of the Code of Federal Regulations Patient History Date of Service: 09/12/19 Reason for admission: Chest pain History of Present Illness: Ms Mackey 61 y old female with history of hypertension, former smoker who quit a year and half ago, presented to the hospital with epigastric/retrosternal pressure pain, occurred around 11:00 a.m. today while at rest. The radiated to the anterior neck area, lasted about 20 min, associated with diaphoresis, shortness of breath and a moderate intensity. Patient denies similar pain in the past. She has a history of GERD which was different from the pain she experienced today. She is currently symptom-free. She denies any cough, fever or chills. Allergies codeine Allergy (Unverified 08/26/16 12:03) Unknown morphine Allergy (Unverified 03/20/16 00:46) Unknown Penicillins Allergy (Unverified 03/20/16 00:46) Unknown Sulfa (Sulfonamide Antibiotics) Allergy (Unverified 03/20/16 00:46) Unknown Chocolate Allergy (Uncoded 03/20/16 00:46) Unknown - Past Medical/Surgical History -: Hypertension -: Denies - Social History Smoking Status: Former smoker Alcohol use: No CD- Drugs: No Caffeine use: No Review of Systems 10-point ROS is otherwise unremarkable Physical Examination - Vital Signs Temperature: 97.9 F Blood Pressure: 112/61 Pulse: 70 Respirations: 17 Pulse Ox (%): 98 - Physical Exam General: Alert, In no apparent distress HEENT: Atraumatic, PERRLA, Mucous membr. moist/pink, EOMI, Sclerae nonicteric Neck: Supple, 2+ carotid pulse no bruit, No LAD, Without JVD or thyroid abnormality Respiratory: Clear to auscultation bilaterally, Normal air movement Cardiovascular: Regular rate/rhythm, Normal S1 S2 Gastrointestinal: Normal bowel sounds, No tenderness Musculoskeletal: No tenderness Integumentary: No rashes Neurological: Normal gait, Normal speech, Normal strength at 5/5 x4 extr, Normal tone, Normal affect Lymphatics: No axilla or inguinal lymphadenopathy - Studies Laboratory Data (last 24 hrs) 09/12/19 12:44: PT Cancelled, INR Cancelled 09/12/19 12:44: WBC Cancelled, Hgb Cancelled, Hct Cancelled, Plt Count Cancelled 09/12/19 12:44: Sodium Cancelled, Potassium Cancelled, BUN Cancelled, Creatinine Cancelled, Glucose Cancelled, Magnesium Cancelled, Total Bilirubin Cancelled, AST Cancelled, ALT Cancelled, Alkaline Phosphatase Cancelled 09/12/19 12:41: PT 12.1, INR 1.03 09/12/19 12:41: WBC 12.8 H, Hgb 13.3, Hct 41.2, Plt Count 401 09/12/19 12:41: Sodium 132 L, Potassium 4.1, BUN 19 H, Creatinine 0.83, Glucose 120 H, Magnesium 1.9, Total Bilirubin 0.2, AST 9 L, ALT 28, Alkaline Phosphatase 45, Lipase 126 Assessment and Plan - Plan Ms Mackey is 59 Y old female who presented with substernal chest pain # Chest pain-rule out ACS. Patient had a stress test 6 months ago which was unremarkable. EKG showed NSR with no ST- T wave abnormality. Troponin x1 is negative. Will trend troponin. -significant family history with premature CAD in father. -cannot rule out GI etiology as cause of pain. Initiate pepcid -aspirin. Check lipid panel and echocardiogram. -given risk factors, will consult hot plate plywood press operator for recommendation. # History of hypertension-will resume antihypertensive once available. Blood pressure is currently stable. # Hyponatremia-unclear medication at home. Once list is available, will review. -will check urine studies. Trend sodium. #Leukocytosis-unclear etiology. UA pending. Chest x-ray is unremarkable. - Patient is afebrile. - reactive? #Hyperglycemia-rule out diabetes mellitus with hemoglobin A1c. DVT prophylaxis-SCD next and patient is full code. Disposition-anticipate discharge home soon. Discharge Plan: Home Plan to discharge in: 24 Hours - Advance Directives Does patient have a Living Will: No Does patient have a Durable POA for Healthcare: No - Code Status/Comfort Care Code Status Assessed: Yes
--- NOTE | 2019-09-12 14:28 | RAD REPORT ---
EXAM DESCRIPTION: Feliberto Single View09/12/2019 2:03 pm CLINICAL HISTORY: Chest pain COMPARISON: 2017 FINDINGS: The lungs appear clear of acute infiltrate. The heart is normal size IMPRESSION: No acute abnormalities displayed
[2019-09-12 16:11] VITALS: O2SAT 99
[2019-09-12 16:13] VITALS: BP 113/72; TEMP 98
[2019-09-13] MEDS ORDERED: ASPIRIN EC 81 MG TAB PO SCH (09:00)
--- NOTE | 2019-09-13 13:03 | P.DS ---
Admission Date: 09/12/19 Discharge Date: 09/13/19 Disposition: AMA-LEFT AGAINST MEDICAL ADVIC Discharge Condition: GOOD Reason for Admission: Chest pain Brief History of Present Illness: Ms Mackey 61 y old female with history of hypertension, former smoker who quit a year and half ago, presented to the hospital with epigastric/retrosternal pressure pain, occurred around 11:00 a.m. today while at rest. The radiated to the anterior neck area, lasted about 20 min, associated with diaphoresis, shortness of breath and a moderate intensity. Patient denies similar pain in the past. She has a history of GERD which was different from the pain she experienced today. She is currently symptom-free. She denies any cough, fever or chills. Hospital Course: Ms Mackey is 59 Y old female who presented with substernal chest pain # Chest pain-rule out ACS. Patient had a stress test 6 months ago which was unremarkable. EKG showed NSR with no ST- T wave abnormality. Troponin x1 is negative. Will trend troponin. -significant family history with premature CAD in father. -cannot rule out GI etiology as cause of pain. Initiate pepcid -aspirin. Check lipid panel and echocardiogram. -given risk factors, will consult soil biology teacher for recommendation. # History of hypertension-will resume antihypertensive once available. Blood pressure is currently stable. # Hyponatremia-unclear medication at home. Once list is available, will review. -will check urine studies. Trend sodium. #Leukocytosis-unclear etiology. UA pending. Chest x-ray is unremarkable. - Patient is afebrile. - reactive? #Hyperglycemia-rule out diabetes mellitus with hemoglobin A1c. Patient left AMA from the ER shortly after being seen. Vital Signs/Physical Exam: Temp Pulse Resp BP Pulse Ox 98 F 65 16 113/72 98 09/12/19 15:57 09/12/19 15:57 09/12/19 15:57 09/12/19 15:57 09/12/19 14:09 Laboratory Data at Discharge: WBC 12.8 K/uL (4.3-10.9) H 09/12/19 12:41 Hgb 13.3 g/dL (12.0-15.0) 09/12/19 12:41 Hct 41.2 % (36.0-45.0) 09/12/19 12:41 Plt Count 401 K/uL (152-406) 09/12/19 12:41 PT 12.1 SECONDS (9.5-12.5) 09/12/19 12:41 INR 1.03 09/12/19 12:41 Sodium Cancelled 09/12/19 12:44 Potassium Cancelled 09/12/19 12:44 BUN Cancelled 09/12/19 12:44 Creatinine Cancelled 09/12/19 12:44 Glucose Cancelled 09/12/19 12:44 Magnesium Cancelled 09/12/19 12:44 Total Bilirubin Cancelled 09/12/19 12:44 AST Cancelled 09/12/19 12:44 ALT Cancelled 09/12/19 12:44 Alkaline Phosphatase Cancelled 09/12/19 12:44 Lipase 126 U/L (73-393) 09/12/19 12:41
--- NOTE | 2019-09-14 05:28 | EKG ---
Test Date: 2019-09-12 Test Time: 12:25:20 Bridge Operator: LUPE MEASUREMENT RESULTS: Intervals: Rate: 69 NV: 154 QRSD: 78 QT: 394 QTc: 422 [place]: P: 49 NV: 154 QRS: 37 T: 81 INTERPRETIVE STATEMENTS: Normal sinus rhythm Possible Left atrial enlargement Borderline ECG No previous ECG available for comparison Electronically Signed On 09-14-19 05:25:39 CDT by Bernardo Winter
== END 2019-09-12 15:58 | disposition left against medical advice (07) ==
LOC: ER 12:11 → ERHOLD 13:55
PROVIDERS: ADMIT Hospitalist; ATTEND Hospitalist
DX: R07.89 Other chest pain (principal); I10 Essential (primary) hypertension; E87.1 Hypo-osmolality and hyponatremia; D72.829 Elevated white blood cell count, unspecified; R73.9 Hyperglycemia, unspecified; Z87.891 Personal history of nicotine dependence; Z53.29 Procedure and treatment not carried out because of patient's decision for other reasons; K21.9 Gastro-esophageal reflux disease without esophagitis; E78.00 Pure hypercholesterolemia, unspecified; F41.9 Anxiety disorder, unspecified; Z79.899 Other long term (current) drug therapy; Z86.79 Personal history of other diseases of the circulatory system
CPT/HCPCS: 93005; 85025; 80048; 36415; 83735; 85610; 80076; 84484; 83690; 83880; 71045; 96372; 96374; 99285; J1650; G0378 ×2